=== PATIENT | female | born 1960 | race Caucasian/White ===

== ENCOUNTER 2022-03-31 13:23 | Inpatient (IN) ==
[2022-03-31] MEDS ORDERED: NITROGLYCERIN SL 0.4 MG/TAB TAB SL STA (13:32)
[2022-03-31] MEDS ORDERED: NITROGLYCERIN SL 0.4 MG/TAB TAB ONE (13:32)
[2022-03-31] MEDS ORDERED: HEPARIN SOD (PORCINE) 1000 UNIT/ML IV ONE (13:40)
[2022-03-31] MEDS ORDERED: niCARdipine HCL INJ 2.5 MG/ML 10 ML AMP ONE (13:40)
[2022-03-31] MEDS ORDERED: fentaNYL citrate 100 MCG/2 ML VIAL ONE (13:40)
[2022-03-31] MEDS ORDERED: MIDAZOLAM HCL 1 MG/ML 2ML VIAL ONE (13:40)
[2022-03-31] MEDS ORDERED: HEPARIN (PORCINE) 1000 UNIT/ML 10 ML (CATH LAB USE ONLY) ONE (13:40)
[2022-03-31] MEDS ORDERED: TICAGRELOR 90 MG TAB PO ONE (13:40)
[2022-03-31] MEDS ORDERED: NITROGLYCERIN/D5W 100MCG/ML 20ML SYR ONE (13:41)
[2022-03-31 13:53] LABS: Basophils # (auto) 0.07 K/uL (0-0.2); Basophils % (auto) 0.6 %; Eosinophils # (auto) 0.23 K/uL (0-0.50); Eosinophils % (auto) 2.1 %; Hemoglobin 15.4 g/dl (12.0-16.0); Immature Granulocytes # (auto) 0.05 K/uL (0.00-0.02); Immature Granulocytes % (auto) 0.5 %; Lymphocytes # (auto) 2.19 K/uL (1.2-3.4); Mean Corpuscular Hemoglobin 30.7 pg (25.0-34.0); Mean Corpuscular Hgb Conc 34.2 g/dL (32.0-36.0); Mean Corpuscular Volume 89.6 fL (80.0-100.0); Monocytes # (auto) 0.93 K/uL (0.24-0.82); Monocytes % (auto) 8.5 %; Neutrophils # (auto) 7.48 K/uL (1.4-6.5); Neutrophils % (auto) 68.3 %; Platelet Count 232 K/uL (130-400); RDW Coefficient of Variation 12.7 % (11.5-14.5); RDW Standard Deviation 41.3 fL (36.4-46.3); Red Blood Count 5.02 M/uL (3.93-5.22); White Blood Count 10.95 K/ul (4.8-10.8)
--- NOTE | 2022-03-31 13:56 | Emergency Department Note ---
Impression & Plan ST elevation (STEMI) myocardial infarction, Chest pain, Nausea ED Provider Note Provider: Kemal Harvey MD DATE OF SERVICE: 03/31/2022 CHIEF COMPLAINT: Chest jaw and arm pressure HISTORY OF PRESENT ILLNESS: Patient is a 62-year-old female history of hyperlipidemia presenting here today via ambulance from the [employer] [facility]. Patient was brought in by EMS here after she developed pressure in her left jaw and arm and into the chest. No history of cardiac disease and states she is had negative stress test in the past. Non-smoker and denies diabetes. Family history of heart disease reported. Some nausea earlier but Zofran helped with this. Was hypotensive for EMS and collins but, was improved after some fluid and she no longer feels really nauseous. REVIEW OF SYSTEMS: A total of 10 review of systems was obtained and negative except as stated above in the HPI. PAST MEDICAL HISTORY: As noted above MEDICATIONS: Statin SOCIAL HISTORY: from [place], non-smoker Family medical history: Cardiac disease PHYSICAL EXAM: GENERAL: alert and oriented appears uncomfortable Head: normocephalic and atraumatic EYES: No injection, discharge or icterus. NECK: Trachea midline. ENT: Mucous membranes pink and moist. LUNGS: Airway patent. No retractions. Breath sounds clear anteriorly HEART: Regular rate and rhythm. No chest wall tenderness ABDOMEN: Soft and non-tender, without guarding or rebound. SKIN: Acyanotic, warm, dry, without rashes EXTREMITIES: Without swelling, tenderness or deformity NEUROLOGICAL: No focal deficits. No aphasia. No facial droop or slurred speech. EK bpm normal sinus rhythm without PVC or PAC. Inferior lateral ST segment elevation with aVL and V2 depressions. CONTINUOUS CARDIAC MONITORING: was ordered and showed a heart rate of 70s-90s bpm in NSR Patient's laboratory studies and imaging reviewed. Differential includes Cardiac ischemia, aortic dissection, pulmonary embolism, pneumothorax, pneumonia, pericarditis, myocarditis, esophageal rupture, GERD, cholecystitis, pancreatitis, musculoskeletal, as well as other pathologies. IMPRESSION/MEDICAL DECISION MAKING: Patient with prehospital EKG and EKG here consistent with inferior lateral STEMI. Quotation Clerk activated. Received aspirin prior to arrival & given additi onal heparin and Brilinta in discussion with cardiology who evaluated at bedside. Will go to the Quotation Clerk for definite care. Labs and IV access given. Given some nitro she as she is hypertensive now to help with her pain complaints with some improvement of her chest and jaw pressure. updated at bedside. DIAGNOSIS: STEMI, chest pain, nausea DISPOSITION: To cardiac labor arbitrator hearing office Critical Care I have personally spent 32 minutes of critical care time in the direct management of this patient. This includes bedside care, interpretation of diagnostic studies, and testing, discussion with consultants, patient, and family members, and other required patient management activities. These 32 minutes is in excess of all separately billable procedures. Past Med/Surg History Social History Smoking Status: Never smoker Feels Safe at Home: Yes Results & Data (ED) Vital Signs Vital Signs - 24 hr 03/31/22 13:29 03/31/22 13:29 03/31/22 13:29 Temperature 36.8 C 36.7 C Temperature Source Oral Oral Pulse Rate 81 Pulse Rate [Apical] 86 Respiratory Rate 20 20 Respiratory Effort / Characteristics Non-Labored Spontaneous Non-Labored Spontaneous Respiratory Depth Normal Normal Respiratory Pattern Regular Regular Blood Pressure 184/104 H Blood Pressure [Right Arm] 184/104 H Blood Pressure Mean 130 Blood Pressure Mean [Right Arm] 130 Pulse Oximetry 93 91 93 Oxygen Delivery Method Room Air Room Air Room Air Sepsis Recent Fever Within 48 Hours No Sepsis New/Unexplained Change in Mental Status No Sepsis Action Taken by Nursing No Action Required 03/31/22 13:41 Temperature Temperature Source Pulse Rate 85 Pulse Rate [Apical] Respiratory Rate 20 Respiratory Effort / Characteristics Respiratory Depth Respiratory Pattern Blood Pressure Blood Pressure [Right Arm] Blood Pressure Mean Blood Pressure Mean [Right Arm] Pulse Oximetry 93 Oxygen Delivery Method Room Air Sepsis Recent Fever Within 48 Hours Sepsis New/Unexplained Change in Mental Status Sepsis Action Taken by Nursing Laboratory Data Result diagrams: 03/31/22 13:40 03/31/22 13:40 Discharge Plan Visit Data Chief Complaint: Heart Alert ED Provider: Kemal Harvey Discharge Problem: ST elevation (STEMI) myocardial infarction, Chest pain, Nausea Patient Disposition: Still a Patient Condition: Serious Forms Stand Alone Forms: My [facility] Referrals Referrals: PCP,NO [Primary Care Provider] -
[2022-03-31 13:58] LABS: iSTAT Creatinine 1.1 mg/dl (0.6-1.3); iSTAT Hemoglobin 15.6 g/dl (12.0-16.0); iSTAT Ionized Calcium 1.19 mmol/l (1.12-1.32); iSTAT Potassium 4.6 mmol/L (3.3-5.0)
[2022-03-31] MEDS ORDERED: ATROPINE SULFATE 0.1 MG/ML 10ML SYR IV ONE (14:01)
[2022-03-31 14:06] LABS: Partial Thromboplastin Ratio 0.9; Partial Thromboplastin Time 24.9 Seconds (21.0-31.0); Prothrombin Time 10.9 Seconds (9.0-12.0)
--- NOTE | 2022-03-31 14:06 | XRay Report ---
XR chest 1V portable HISTORY: 62 years-old Female Chest pain acute atypical chest pain COMPARISON: None TECHNIQUE: Supine AP view of the chest FINDINGS: Cardiac silhouette is enlarged. Indeterminate right hilar/suprahilar round opacity. No pneumothorax, pleural effusion or lobar airspace consolidation. There is mild nonspecific interstitial coarsening. Degenerative changes of the shoulders and spine. IMPRESSION: 1. No acute processes of the chest. 2. Indeterminate circumscribed right hilar/suprahilar opacity. Correlate with prior imaging. ACT 112: Negative or not required by law. The above report was generated using voice recognition software. It may contain grammatical, syntax o r spelling errors. Electronically signed by: Christiano Suero M.D. 03/31/2022 2:05 PM
[2022-03-31] MEDS ORDERED: LIDOCAINE 1% LOCAL 20 ML VIAL ONE (14:40)
[2022-03-31 14:41] LABS: Alanine Aminotransferase 14 U/L (7-52); Albumin Globulin Ratio 1.5 (0.9-2); Albumin Level 4.4 gm/dl (3.4-5.0); Alkaline Phosphatase 66 U/L (34-104); Anion Gap 9 (3-11); BUN Creatinine Ratio 24.3 (10-20); Bilirubin,Total 0.3 mg/dl (0.2-1.0); Blood Urea Nitrogen 26 mg/dl (6-23); Calcium 9.5 mg/dl (8.5-10.1); Carbon Dioxide 25 mmol/L (21-32); Chloride 103 mmol/L (98-107); Creatine Kinase 70 U/L (26-192); Creatinine Clr Calc Pharmacy 52.6 ml/min; Est GFR (Non-African American) 55.2 ml/min; Globulin 2.9 gm/dl (2.5-4.0); Glucose 123 mg/dl (70-99(Fasting)); Lipase 28 U/L (11-82); Magnesium 2.1 mg/dl (1.7-2.4); Sodium 137 mmol/L (136-145); Total Protein 7.3 gm/dl (6.0-8.3); Troponin I High Sensitivity 25.6 pg/ml (0-14)
[2022-03-31] MEDS ORDERED: ATROPINE SULFATE 0.1 MG/ML 10ML SYR IV PRN (14:41)
[2022-03-31] MEDS ORDERED: NITROGLYCERIN SL 0.4 MG/TAB TAB SL PRN (14:41)
[2022-03-31] MEDS ORDERED: MAGNESIUM HYDROXIDE SUSP 30 ML UDC PO PRN (14:41)
[2022-03-31] MEDS ORDERED: ONDANSETRON INJ 2 MG/ML 2 ML VIAL IV PRN (14:41)
[2022-03-31] MEDS ORDERED: SODIUM CHLORIDE 0.9% 1000ML 1,000 ML IV SCH (14:45)
--- NOTE | 2022-03-31 15:20 | Cardiac Catheterization ---
ACC Data: Electric Range Assembler Cardiac Status Clinical evaluation leading to the procedure CAD Presenation: STEMI (Inferior) Anginal Classification: CCS IV Heart Failure: No Cardiogenic Shock within 24 Hours: No Cardiac Arrest within 24 Hours: No STEMI OR Non-STEMI Symptom Onset Date: 03/31/22 Symptom Onset Time: 13:00 Thrombolytics: No Coronary Anatomy Left Main (% Stenosis): Normal LAD (% Stenosis): Normal (Diffuse mild) D1 (% Stenosis): Normal D2 (% Stenosis): Normal D3 (% Stenosis): Normal Circumflex (% Stenosis): Mid (70%) RCA (% Stenosis): Mid (100%. BERYL 0 flow.) and Distal (70%) R PDA (% Stenosis): Normal R PL1 (% Stenosis): Normal Diagnostic Physicians Name: Laureano Vallejo MD, PhD Closure Device Percutaneous Entry Location: Radial Recommendations: PCI without planned CABG PCI Indication: PCI for STEMI - Stable First Noted: First EKG Lesion Segment Name: Mid RCA Culprit Artery: Yes Stenosis Prior to Rx (%): 100% Chronic Total Occlusion: No Pre-Procedure BERYL Flow: 0 Previously Treated Lesion: No Lesion Complexity: Non-High/Non-C Lesion Length (mm): 15 mm Thrombus Present: Yes Bifurcation Lesion: No Guidewire Across Lesion: Yes Lesion #2 Segment Name: Distal RCA Culprit Artery: Yes Stenosis Prior to Rx (%): 70% Chronic Total Occlusion: No Pre-Procedure BERYL Flow: 0 Previously Treated Lesion: No Lesion Complexity: Non-High/Non-C Lesion Length (mm): 8 millimeters Thrombus Present: Yes Bifurcation Lesion: No Guidewire Across Lesion: Yes Cardiac Cath Procedure Full Procedure Date March 31, 2022 Pre-Procedure Diagnosis Pre-Procedure Diagnosis: STEMI (inferior) AUC Score AUC Score: 09 Post-Procedure Diagnosis Post-Procedure Diagnosis: Severe CAD Procedure(s) Performed Procedure(s) Performed: Coronary Angiography and Drug Eluting Stent Scissors Sharpener Laureano Vallejo MD, PhD Estimated Blood Loss Estimated Blood Loss: <10 ml Medication(s) Medication(s): Fentanyl, Heparin, Lidocaine 1%, Nicardipine, Nitroglycerin and Versed Summary of Findings Brief description: Patient was brought to the cardiac catheterization suite where she was shaved and prepped in a sterile fashion. Sedated using IV Versed and fentanyl. Soft tissues of the right wrist were anesthetized using 2 mL of 1% Xylocaine. The right radial artery was accessed using a modified Seldinger technique and a 6 Belgian radial artery glide sheath was placed. Patient was provided antispasmodics including nicardipine and nitroglycerin. She arrived after having received 5000 unit IV bolus of heparin. ACT was checked and additional heparin was provided as needed to maintain therapeutic ACT. All catheters were advanced and exchanged over a 0.35 J-tip wire. Left coronary angiography in orthogonal views with a 5 Belgian JL 3.5 diagnostic catheter. Right coronary angiography in orthogonal views with a 6 Belgian JR4 guide catheter. We proceeded with PCI using the 6 Belgian JR4 guide catheter. Through this, a Onovative guidewire was advanced and positioned distally into the PDA. Over the guidewire, a 2.0 x 12 mm compliant balloon was advanced and positioned across the lesion. Lesion was predilated multiple times up to 14 reinier. The balloon was then removed. A 2.25 x 18 [place] drug-eluting stent was then advanced and positi oned across the lesion in the RCA. This was deployed initially at 8 reinier. The stent balloon was removed and angiography was performed. Decision was made to post dilate the stent using a 2.25 x 8 noncompliant balloon up to 14 reinier. Final post dilatation diameter 2.3 mm. Angiography was performed. Patient continued to have chest discomfort and it was noted that the distal LAD just before the bifurcation had a residual 50 to 70% stenosis. Therefore, a 2.25 x 12 mm drug- eluting stent was advanced and deployed across the lesion at nominal deployment pressure. Stent balloon was removed and angiography was performed. Patient's chest discomfort resolved. Final angiographic evaluation was performed. The guide catheter that was then removed from the patient. Radial artery sheath was removed. Hemostasis was obtained using a TR band. She was then admitted to the inpatient telemetry unit for further work-up and management. This ended the case. Coronary angiography: Left main trunk: This is a large-caliber short vessel which bifurcates into the LAD and left circumflex. It has no angiographically evident disease. LAD: This is a large caliber vessel which reaches the apex. Provides several smaller diagonal branches and several larger septal branches. The third diagonal is a largest and branches almost immediately. The LAD and its branches have scattered mild plaques. LCx: Large caliber and nondominant. Proximal AV groove vessel is large with mild luminal irregularities. Provides a large caliber multi branching OM1. This has diffuse mild disease proximally and the mid segment becomes more tortuous and smaller in caliber. It then bifurcates distally into 2 branches which are small. The mid and distal branches have diffuse mild to moderate disease. The mid AV groove circumflex becomes relatively small in caliber. Probably around 2 mm in diameter. It is diffusely diseased with stenosis of up to 70%. It then provides a larger caliber posterolateral branch. The posterior lateral branch is tortuous with multiple branches. It has diffuse mild disease. The most distal AV groove circumflex becomes small traveling further in the AV groove where it bifurcates and terminates. RCA: Is a medium caliber and dominant vessel. Ostium is the same size as the 6 [place] guide catheter. There is diffuse mild disease proximally then the vessel is 100% occluded in the midsegment. There is BERYL 0 flow in this segment. PCI of RCA: 0% residual stenosis in the midsegment post PCI. Small stepup and stepdown with 0% residual stenosis in the distal RCA post PCI. BERYL-3 flow post PCI no evidence of dissection or perforation post PCI Complete anatomy is demonstrated post PCI. This includes mild diffuse disease between the mid and distal stents. The distal stent ends just before the bifurcation. Artery bifurcates into a large caliber and long branching PDA which has mild luminal irregularities and a medium to small caliber branching posterolateral. Hemodynamics Rest Ao:: 160/98 mmHg, mean 113 mmHg Final Ao: 165/92 mmHg, mean 97 mmHg LV: Not performed Recommendations Recommendations: PCI without planned CABG Radiation Exposure (mGy) 1069 mGy, fluoroscopy time 7.3 minutes Contrast (mls) 150 mL Anesthesia 1 mg IV Versed, 50 mcg IV fentanyl Procedural Complication(s) None Disposition Recovery Room\PACU I attest to the content of the Intraoperative Record and any orders documented therein. Any exceptions are noted below. [facility] Card Cath Procedure Codes Cardiac Catheterization Procedure 1: Cardiovascular Cath Procedures: 18717 Coronaries Stenting Procedure 1: Cardiovascular Stent Procedures: 84021 Perc transluminal revascularization of acute sub/total occl, aMI (RCA) PG Care Time/CCT Total # of Minutes Spent Total Time Spent with Patient: Total time spent is greater than 50% in coordination of care (as documented) at patient's floor/unit and/or counseling patient:
--- NOTE | 2022-03-31 15:38 | History & Physical Report ---
Date of Service March 31, 2022 Assessment & Plan (1) Atherogenic dyslipidemia: Plan: Patient is considered high risk (CAD). We will also look for other risk factors including occult diabetes. Current guidelines recommend high intensity statin therapy with aggressive LDL reduction. We are checking a fasting lipid panel with target LDL to be reduced by 50% from untreated baseline. Atorvastatin 40 mg p.o. daily is initiated. Present on Admission?: Yes (2) Benign essential hypertension: Plan: Blood pressure is elevated and she does not seem to take any medications for this. We will initiate appropriate guideline directed therapy as indicated by coronary disease. First agent will be a beta-krystal. Then, MESHA inhibitor/ARB if needed. Present on Admission?: Yes (3) Coronary artery disease: Plan: This is a new diagnosis. Underwent PCI for acute RCA occlusion. There is significant residual disease in the circumflex distribution and mild diffuse disease elsewhere. Guideline directed medical therapy is recommended. Low-dose aspirin, high intensity statin therapy, and beta-krystal plus or minus MESHA inhibitor as tolerated and determined by renal function. We will also obtain an echocardiogram to evaluate for abnormalities in structure or function. Further recommendations pending results. Present on Admission?: Yes (4) ST elevation (STEMI) myocardial infarction: Plan: Inferior STEMI status post PCI x2 drug-eluting stents to the RCA. Echocardiogram to evaluate EF. Dual antiplatelet therapy with aspirin (81 mg daily) and Brilinta (90 mg twice daily) to complete at least 1 year therapy. After that, 1 additional year of dual antiplatelet therapy with aspirin 81 mg and either Brilinta 60 mg twice daily or Plavix 75 mg daily. We have started metoprolol tartrate 25 mg p.o. twice daily. This will be titrated up to achieve target heart rate and blood pressure. MESHA inhibitor/ARB will also be started to achieve target blood pressure. Present on Admission?: Yes Plan Patient will be hospitalized for at least 48 hours. Stepdown as appropriate. Complete studies as above. Additional recommendations pending evolution of her clinical course. Admission and Anticipated Discharge Date Admission Date: 03/31/2022 admission Anticipated date of discharge: 04/02/22 History of Present Illness Chief Complaint: Chest pain Primary Care Provider: NO PCP 62-year-old female who denies prior cardiac history is visiting family from [place] and attending the [employer] football game. She had sudden onset chest pressure, shortness of breath, diaphoresis, nausea, and malaise. EMS evaluated in the stadium and preadmission EKG demonstrated significant inferior ST elevation with reciprocal ischemic changes elsewhere. A "heart alert" was called and on my arrival the patient was receiving initial triage care in the emergency department. She appeared acutely in distress and was uncomfortable. She had received aspirin. Her blood pressure was elevated. I reviewed her EKG and we briefly discussed need for emergent cardiac catheterization. Risk benefits and alternatives were discussed with the patient. She voiced understanding as her had just had a catheterization within the last month. She was to proceed emergently for catheterization and PCI as indicated. Patient was then provided IV heparin 5000 units, Brilinta 180 mg p.o., and aspirin by the emergency room staff. Patient then arrived in the cardiac catheterization suite where I proceeded with urgent catheterization. This revealed acutely occluded RCA. We stented the RCA in 2 places and she had resolution of her symptoms. She remained hemodynamically stable. She will now be admitted to the telemetry unit for further work-up and management. Patient denies preceding anginal symptoms. She has had no cardiac events or disease in the past per her recollection. Unfortunately, outpatient records are not available. Currently, denies any ongoing chest pain, shortness of breath, recent syncope, near syncope, orthopnea, PND, racing heartbeat, palpitations, or edema. No fevers or chills. No cough or sputum production. No hemoptysis, hematemesis. She has had no significant GI distress. No dysuria or hematuria. No melena or hematochezia. Past Med/Surg History Social History Smoking Status: Never smoker Feels Safe at Home: Yes Review of Systems Review of Systems: Negative x12 point review except as per HPI. Physical Exam Constitutional: WD/WN, vitals as above Eyes: PERRL, conjunctivae normal, anicteric sclerae ENMT: external ear and nose normal, oropharynx normal Neck: No JVD Respiratory: normal respiratory effort, lungs clear to auscultation Cardiovascular: RRR, no murmur, no edema Gastrointestinal (Abdomen): NABS. Neurologic: Cognition is intact. Speech is fluent. There is no focal deficits. Psychiatric: A+Ox3, euthymic affect Results & Data Results & Data ([facility]) Vital Signs (Past 12 Hours) Vital Signs Temp Pulse Pulse Resp BP BP Pulse Ox 03/31/22 13:41 85 20 93 03/31/22 13:29 36.7 C 86 20 184/104 H 93 03/31/22 13:29 91 03/31/22 13:29 36.8 C 81 20 184/104 H 93 O2 Del Method 03/31/22 13:41 Room Air 03/31/22 13:29 Room Air 03/31/22 13:29 Room Air 03/31/22 13:29 Room Air Code Status & VTE Plan VTE Prophylaxis Plan VTE Prophylaxis will be ordered: Yes Critical Care Time Critical Care Time: Yes PG Care Time/CCT Total # of Minutes Spent Total Time Spent with Patient: Total time spent is greater than 50% in coordination of care (as documented) at patient's floor/unit and/or counseling patient: Critical Care Time: Yes 45-minute was spent in the initial evaluation, examination, formulation of a plan of care, review of available records, implementation of that plan of care, discussion with family () and with the ER hospital team and [employer] team. This also includes discussion with the nursing staff on the floor. This time is exclusive of the time spent in the procedure. This time includes time spent in documentation of all of the above. [place] [address] Initial Inpt Care Lvl 3 Patient Type New History Comprehensive Exam Comprehensive Medical Decision Making High Complexity Diagnoses Atherogenic dyslipidemia E78.5 Benign essential hypertension I10 Coronary artery disease I25.10 ST elevation (STEMI) myocardial infarction I21.3 Involved coronary artery: unspecified coronary artery Additional Codes Critical Care Time - Critical Care Time: Yes ([id number]) (1) ST elevation (STEMI) myocardial infarction Involved coronary artery: unspecified coronary artery Qualified Code(s): I21.3 - ST elevation (STEMI) myocardial infarction of unspecified site
--- NOTE | 2022-03-31 15:41 | Pre Anesthesia Assessment ---
Date of Service March 31, 2022 Pre Sedation Assessment Vital Signs Temp Pulse Pulse Resp BP BP Pulse Ox 03/31/22 15:19 36.8 C 88 19 128/76 97 03/31/22 13:41 85 20 93 03/31/22 13:29 36.7 C 86 20 184/104 H 93 03/31/22 13:29 91 03/31/22 13:29 36.8 C 81 20 184/104 H 93 O2 Del Method 03/31/22 15:19 Room Air 03/31/22 13:41 Room Air 03/31/22 13:29 Room Air 03/31/22 13:29 Room Air 03/31/22 13:29 Room Air Cardiovascular RRR, no murmur, no edema Respiratory normal respiratory effort, lungs clear to auscultation Pre-Sedation Airway Assessment Smoking Status: Never smoker II IV Notes The planned sedation has been discussed with the patient. Informed Consent was obtained. I have identified the patient, determined the appropriateness of sedation and have assessed the patient immediately prior to the procedure. All medicine(s) and interventions are by my order.
--- NOTE | 2022-03-31 15:42 | Post Anesthesia Assessment ---
Date of Service March 31, 2022 Post Sedation Assessment Vital Signs Temp Pulse Pulse Resp BP BP Pulse Ox 03/31/22 15:19 36.8 C 88 19 128/76 97 03/31/22 13:41 85 20 93 03/31/22 13:29 36.7 C 86 20 184/104 H 93 03/31/22 13:29 91 03/31/22 13:29 36.8 C 81 20 184/104 H 93 O2 Del Method 03/31/22 15:19 Room Air 03/31/22 13:41 Room Air 03/31/22 13:29 Room Air 03/31/22 13:29 Room Air 03/31/22 13:29 Room Air Recovery Score Activity: Moves 4 extremities Respiration: Deep Breath/Cough Circulation: +/-20% PreAnes Value Consciousness: Fully Awake Oxygen Saturation: > 92% On Room Air Discharge Sedation Level of Care: Phase I Post Sedation Plan On clinical assessment, the patient appears to have tolerated the sedation without complications. Patient is recovering as anticipated. Patient will continue to be monitored by nursing and may be discharged when sedation discharge criteria are met per below protocol. Upon Completions of procedure up to 15 minutes continue every 5 minute vital signs and the P.A.R. score; then discharge to a Phase I or Fast Track to Phase II per the following guidelines: * Discharge Patient to appropriate Phase II area if PAR is 8 or greater or return to pre- procedure baseline. The post - procedure orders will be as directed. * If PAR score is less than 8 or not return to pre-procedure baseline then pat ient will follow Phase I monitoring till PAR is reached for Phase II. The Phase I may be done in procedure room or may call to secure a Phase I area. * If naloxone or flumazenil are used for reversal, hold in Phase I for continued monitoring from when last reversal dose was given for a minimum of 60 minutes or longer pending the nurse and/or physician discretion of patient condition before discharge to Phase II. Please call the Sedation Physician to re-evaluate and complete post-note for discharge to Phase II area. Do NOT discharge from procedure sedation or Phase 1 until post- sedation evaluation note is complete by procedure /sedation MD Sedation Discharge Instructions to be given to the patient at discharge to home. [facility] Procedure Codes (Charges) Indication for Procedure Indication for procedure: STEMI Sedation/Anesthesia Procedure 1: Sedation/Anesthesia: 82761 Mod Sedation by the same physician;Init15 Min Child Age 5 & Up Total Sedation Time (minutes): 31 Procedure 2: Sedation/Anesthesia: 25209 Mod Sedation by the same physician; Ea [id number] Minutes Total Sedation Time (minutes): 31
[2022-03-31] MEDS: Patient's ALLERGY Info needs ENTERED SCH ×2 (16:17→17:09)
[2022-03-31 16:42] LABS: Potassium 4.1 mmol/L (3.5-5.1)
[2022-03-31] MEDS: ATORVASTATIN 40 MG TAB PO SCH (17:51)
[2022-03-31] MEDS: ENOXAPARIN INJ 40 MG/0.4 ML SYR SQ SCH (20:35)
[2022-03-31] MEDS: TICAGRELOR 90 MG TAB PO SCH (20:42)
[2022-03-31] MEDS: METOPROLOL TARTRATE 25 MG TAB PO SCH (20:42)
--- NOTE | 2022-03-31 23:23 | Electrocardiogram Report ---
Test Reason : Blood Pressure : / mmHG Vent. Rate : 074 BPM Atrial Rate : 074 BPM P-R Int : 174 ms QRS Dur : 096 ms QT Int : 372 ms P-R-T Axes : 054 062 101 degrees QTc Int : 412 ms Normal sinus rhythm Inferior infarct , possibly acute Inferolateral injury pattern ACUTE MS / STEMI Consider right ventricular involvement in acute inferior infarct Abnormal ECG No previous ECGs available Confirmed by Wei Doshi ([id number]) on 03/31/2022 11:23:39 PM Referred By: Confirmed By:Wei Doshi
--- NOTE | 2022-04-01 06:50 | Hospitalist Consultation ---
Date of Consultation March 31, 2022 Assessment & Plan (1) Coronary artery disease: Per primary service (2) Benign essential hypertension: Started on beta krystal. will recommend acehibitor/arb as BP remainns elevated (3) ST elevation (STEMI) myocardial infarction: as per primary service (4) Hypothyroidism: patient is on synthroid forher hypothyroidism. will resume in AM 50 mcg daily. History of Present Illness Reason for Consultation: medical management for CAD Attending Physician: Laureano Vallejo MD, PhD History of Present Illness 62 yo female in town for the [employer] [facility] football game with PMH of dyslipidemia, hypertension, hypothyroidism. Patient presented to the ER with a STEMI and required 2 drug diluting stents to RCA. Patient tolerated procedure well. Patient now in room in PCU and consult for hospitalist service placed. Allergies Allergy/AdvReac Type Severity Reaction Status Date / Time Penicillins Allergy Mild Rash Verified 03/31/22 16:16 Patient History Social History Smoking Status: Never smoker Hx Alcohol Use: Yes Alcohol type: beer and wine Hx Substance Use: No Preferred Language: Albanian Cigarette Stamper Required: No Beliefs That Will Affect Care: None Current Living Situation: Spouse Feels Safe at Home: Yes Assistive Devices: Glasses Review of Systems Constitutional: no fever and no body aches Eyes: no blind spots Ear, Nose, Mouth, Throat: no ear pain and no tinnitus Respiratory: no cough Cardiovascular: + chest pain Gastrointestinal: no abdominal pain Genitourinary: no dysuria Musculoskeletal: no back pain Integumentary: no acne Neurologic: no gait abnormality Psychiatric: no behavioral changes Endocrine: no fatigue Hematologic / Lymphatic: no easy bleeding Allergy / Immunological: no GI upset with certain foods Physical Exam Constitutional: WD/WN, vitals as above Eyes: PERRL, conjunctivae normal, anicteric sclerae ENMT: external ear and nose normal, oropharynx normal Neck: trachea midline, no thyromegaly Respiratory: normal respiratory effort, lungs clear to auscultation Cardiovascular: RRR, no murmur, no edema Gastrointestinal (Abdomen): normal bowel sounds, soft, nontender, no hepatosplenomegaly Musculoskeletal: no cyanosis or clubbing, extremities motor strength 5/5 Skin: no rashes, warm and dry Neurologic: PERRL, EOMI, accommodation nl, no face palsy, no dysarthria Psychiatric: A+Ox3, euthymic affect Lymphatic: no cervical or axillary lymphadenopathy Results & Data Results & Data ([facility]) Vital Signs (Past 12 Hours) Vital Signs Temp Pulse Pulse Resp BP BP Pulse Ox 03/31/22 23:00 62 04/01/22 02:54 36.8 C 70 16 172/112 H 97 03/31/22 23:10 36.8 C 62 16 144/88 H 94 03/31/22 20:26 36.7 C 92 H 18 172/107 H 100 03/31/22 19:18 36.6 C 80 16 138/80 94 O2 Del Method 03/31/22 23:00 04/01/22 02:54 Room Air 03/31/22 23:10 Room Air 03/31/22 20:26 Room Air 03/31/22 19:18 Room Air PG Care Time/CCT Total # of Minutes Spent Total Time Spent with Patient: Total time spent is greater than 50% in coordination of care (as documented) at patient's floor/unit and/or counseling patient: Coding Level of Care Code 51976 Inpt Consult Level 3 Diagnoses Coronary artery disease I25.10 Benign essential hypertension I10 ST elevation (STEMI) myocardial infarction I21.3 Involved coronary artery: unspecified coronary artery Hypothyroidism E03.9 (1) ST elevation (STEMI) myocardial infarction Involved coronary artery: unspecified coronary artery Qualified Code(s): I21.3 - ST elevation (STEMI) myocardial infarction of unspecified site
[2022-04-01 07:15] LABS: Chol HDL Ratio 3.7 (0-5)
[2022-04-01] MEDS: ASPIRIN 81 MG ECTAB PO SCH (08:20)
[2022-04-01] MEDS: METOPROLOL TARTRATE 25 MG TAB PO SCH ×2 (08:20→20:33)
[2022-04-01] MEDS: ATORVASTATIN 40 MG TAB PO SCH (08:20)
[2022-04-01] MEDS: TICAGRELOR 90 MG TAB PO SCH ×2 (08:20→20:30)
[2022-04-01] MEDS: LEVOTHYROXINE SODIUM 50 MCG TABLET PO SCH (08:20)
[2022-04-01] MEDS ORDERED: TICAGRELOR 90 MG HOME PACK PO SCH (09:00)
--- NOTE | 2022-04-01 09:16 | Hospitalist Progress Note ---
Date of Service April 01, 2022 Assessment & Plan (1) ST elevation (STEMI) myocardial infarction: Plan: Patient presented with acute onset of chest pain, shortness of breath, diaphoresis, and nausea. Noted to have inferior STEMI on initial ECG and was taken urgently to the cardiac [facility] where she had 2 stents placed to the RCA Troponin has peaked at 4046. Echocardiogram normal with preserved EF She is chest pain-free. Has some left jaw pain that has been present off and on for months and may be related to grinding her teeth. No arrhythmias on telemetry post PA. Has been intolerant to atorvastatin in the past and only able to tolerate Crestor 5 Mg every 3 days, but is willing to try atorvastatin now that she has been taking co-Q10. Lipid panel here is good Hemoglobin A1c pending, no previous history of diabetes No previous history of hypertension No history of smoking Has a strong family history of CAD in both brothers, one in his early 50s, and also in her father. -Continued stay for telemetry monitoring for another 24 hours -Appreciate cardiology management -Continue DAPT with aspirin and Brilinta for at least 1 year and then either aspirin and Brilinta or aspirin and Plavix after that as per cardiology -Continue atorvastatin 40 mg daily, patient will have her bring her in co-Q10 to use along with it for statin induced myalgias -Started metoprolol 25 Mg p.o. twice daily-cannot tolerate increased dose due to bradycardia at times -will start lisinopril 5 mg daily as below for persistently elevated blood pressures -She will need to get established with cardiology after she returns to [place] and would benefit from cardiac rehab -Right radial cath wrist precautions (2) Coronary artery disease: Plan: As above (3) Benign essential hypertension: Plan: Was not previously on treatment for elevated blood pressures and reports they are typically within normal limits Blood pressures remain quite elevated despite starting metoprolol 25 Mg p.o. twice daily Start lisinopril 5 Mg p.o. once daily Monitor blood pressures (4) Hypothyroidism: Plan: TSH normal here at 0.857 continue home Synthroid 50 mcg daily (5) Abnormal chest xray: Plan: Noted to have a right hilar suprahilar mass on chest x-ray She has no pulmonary symptoms and has never been told this before. No history of sarcoidosis -She is agreeable to chest CT without contrast here for diagnostic purposes -will follow-up on results Plan DVT prophylaxis-Lovenox Disposition-continued stay on PCU, possible discharge home tomorrow if continues to do well Admission and Anticipated Discharge Date Admission Date: March 31, 2022 Subjective Patient reports some residual left jaw pain that comes and goes even at rest and she thinks she has had this for a while/months. Thinks it could be related to grinding her teeth. No chest pains or shortness of breath. She is feeling better than yesterday. She is eating and drinking. Reports joint pains all over and intolerance to statins in the past. She would prefer to try to stay on atorvastatin now that she has been taking co-Q10 whereas when she tried atorvastatin in the past she had significant myalgias. Discussed her abnormal chest x-ray and she has never been told this in the past. No history of sarcoidosis. Telemetry with normal sinus rhythm rates in the 60s to 80s Review of Systems Review of Systems: All systems reviewed & are unremarkable except as noted in HPI & below Physical Exam Constitutional: WD/WN, vitals as above Eyes: + anicteric sclerae ENMT: external ear and nose normal, oropharynx normal Neck: trachea midline, no thyromegaly Respiratory: normal respiratory effort, lungs clear to auscultation Cardiovascular: RRR, no murmur, no edema Chest (Breasts): Chest: normal inspection of chest Gastrointestinal (Abdomen): normal bowel sounds, soft, nontender, no hepatosplenomegaly Musculoskeletal: Extremities: extremities normal to inspection; no cyanosis and no clubbing Skin: no rashes, warm and dry Neurologic: moves all extremities and awake; no focal motor deficits Psychiatric: A+Ox3, euthymic affect Lymphatic: no lymphedema Results & Data Results & Data ([facility]) Vital Signs (Past 12 Hours) Vital Signs Temp Pulse Pulse Resp BP Pulse Ox O2 Del Method 04/01/22 08:49 58 L 04/01/22 07:05 36.6 C 70 16 173/109 H 96 Room Air 03/31/22 23:00 62 04/01/22 02:54 36.8 C 70 16 172/112 H 97 Room Air 03/31/22 23:10 36.8 C 62 16 144/88 H 94 Room Air Laboratory Results 09/25/22 09/25/22 09/25/22 Range/Units 16:20 15:44 09:52 Sodium (136-145) mmol/L Potassium (3.5-5.1) mmol/L Chloride (98-107) mmol/L Carbon Dioxide (21-32) mmol/L Anion Gap (3-11) BUN (6-23) mg/dl Creatinine (0.6-1.2) mg/dl Est Cr Clr Drug Dosing ml/min Est GFR ( Amer) ml/min Est GFR (Non-Af Amer) ml/min BUN/Creatinine Ratio (10-20) Glucose (70-99(Fasting)) mg/dl POC Glucose 110 H (70-99) mg/dl Estimat Average Glucose Pending Hemoglobin A1c Pending Calcium (8.5-10.1) mg/dl Magnesium (1.7-2.4) mg/dl Troponin I High Sens 3784.0 H* (0-14) pg/ml Triglycerides (0-150) mg/dl Cholesterol (0-200) mg/dl LDL Cholesterol, Calc mg/dl VLDL Cholesterol, Calc (0-30) mg/dl HDL Cholesterol mg/dl Cholesterol/HDL Ratio (0-5) 04/01/22 04/01/22 Range/Units 09:52 05:49 Sodium 139 (136-145) mmol/L Potassium 3.5 (3.5-5.1) mmol/L Chloride 105 (98-107) mmol/L Carbon Dioxide 27 (21-32) mmol/L Anion Gap 7 (3-11) BUN 18 (6-23) mg/dl Creatinine 0.74 D (0.6-1.2) mg/dl Est Cr Clr Drug Dosing 74.3 ml/min Est GFR ( Amer) 99.9 ml/min Est GFR (Non-Af Amer) 86.2 ml/min BUN/Creatinine Ratio 24.3 H (10-20) Glucose 135 H (70-99(Fasting)) mg/dl POC Glucose (70-99) mg/dl Estimat Average Glucose Hemoglobin A1c Calcium 9.1 (8.5-10.1) mg/dl Magnesium 1.9 (1.7-2.4) mg/dl Troponin I High Sens 4046.7 H* D (0-14) pg/ml Triglycerides 211 H (0-150) mg/dl Cholesterol 179 (0-200) mg/dl LDL Cholesterol, Calc 89 mg/dl VLDL Cholesterol, Calc 42 H (0-30) mg/dl HDL Cholesterol 48 mg/dl Cholesterol/HDL Ratio 3.7 (0-5) PG Care Time/CCT Total # of Minutes Spent Total Time Spent with Patient: Total time spent is greater than 50% in coordination of care (as documented) at patient's floor/unit and/or counseling patient: Coding Level of Care Code 23490 Subseq Hosp Care Lvl [address] elevation (STEMI) myocardial infarction I21.3 Involved coronary artery: unspecified coronary artery Coronary artery disease I25.10 Benign essential hypertension I10 Hypothyroidism E03.9 Abnormal chest xray R93.89 (1) ST elevation (STEMI) myocardial infarction Involved coronary artery: unspecified coronary artery Qualified Code(s): I21.3 - ST elevation (STEMI) myocardial infarction of unspecified site
[2022-04-01 11:11] LABS: BUN Creatinine Ratio 24.3 (10-20); Calcium 9.1 mg/dl (8.5-10.1); Creatinine Clr Calc Pharmacy 74.3 ml/min; Est GFR (African American) 99.9 ml/min; Est GFR (Non-African American) 86.2 ml/min; Magnesium 1.9 mg/dl (1.7-2.4); Potassium 3.5 mmol/L (3.5-5.1); Troponin I High Sensitivity 4046.7 pg/ml (0-14)
[2022-04-01] MEDS: lisinopril 5 MG TAB PO SCH (12:53)
--- NOTE | 2022-04-01 14:23 | Cardiology Progress Note ---
Date of Service April 01, 2022 Assessment & Plan (1) Benign essential hypertension: Plan: Blood pressure is predominantly above target. We will titrate up her medical regimen. This will be determined by results of echocardiogram which are pending. (2) Atherogenic dyslipidemia: Plan: High risk. High intensity statin therapy. She is intolerant to a atorvastatin. However, she was previously on Crestor 5 mg daily. At that time, her LDL was good and her primary care provider reduced her dosing to every third day. Now that she is known to be high risk I would recommend at least 5 mg daily. (3) Coronary artery disease: Plan: Status post PCI for acute inferior ST elevation NM. Her heart rate and blood pressure are not at target. We will adjust her guideline directed medical therapy to achieve these targets. She will remain on beta-krystal and statin. Dual antiplatelet therapy for at least 1 year. Admission and Anticipated Discharge Date Admission Date: March 31, 2022 Subjective Patient reports only intermittent jaw pain which she has had for many months. Denies any anginal chest pain or shortness of breath. No discomfort at the radial artery access site. No overnight events. Tolerating medications. Review of Systems Review of Systems: Negative x12 point review except as per HPI Physical Exam Constitutional: WD/WN, vitals as above Neck: No JVD Respiratory: Normal respirations. No distress. Cardiovascular: Regular rate and rhythm on the monitor. Neurologic: Cognition intact. Speech fluent. No tremor. Psychiatric: A+Ox3, euthymic affect Results & Data ([facility]) Vital Signs (Past 12 Hours) Vital Signs Temp Pulse Pulse Pulse Resp BP BP 04/01/22 12:20 36.9 C 73 16 161/97 H 04/01/22 08:49 58 L 04/01/22 07:05 36.6 C 70 16 173/109 H 04/01/22 02:54 36.8 C 70 16 172/112 H Pulse Ox O2 Del Method 04/01/22 12:20 93 Room Air 04/01/22 08:49 04/01/22 07:05 96 Room Air 04/01/22 02:54 97 Room Air PG Care Time/CCT Total # of Minutes Spent Total Time Spent with Patient: Total time spent is greater than 50% in coordination of care (as documented) at patient's floor/unit and/or counseling patient: Coding Level of Care Code 77650 Subseq Hosp Care Lvl 2 History Expanded Problem Focused Exam Expanded Problem Focused Medical Decision Making Moderate Complexity Diagnoses Benign essential hypertension I10 Atherogenic dyslipidemia E78.5 Coronary artery disease I25.10
--- NOTE | 2022-04-01 20:05 | CT Scan Report ---
CT SCAN OF THE CHEST WITHOUT IV CONTRAST CLINICAL HISTORY: Abnormal chest x-ray. Right mediastinal density. COMPARISON STUDY: Chest x-ray dated 03/31/2022. TECHNIQUE: CT scan of the thorax was performed from the thoracic inlet to the upper abdomen. Images are reviewed in the axial, sagittal, and coronal planes. IV contrast was not administered for this ex amination. Note that the examination is suboptimal without IV contrast. A dose lowering technique was utilized adhering to the principles of ALARA. CT DOSE: 370.86 mGycm FINDINGS: Thyroid: Imaged portions of the thyroid gland are normal in size and attenuation. Thoracic aorta: There is moderate atherosclerotic calcification of the thoracic aorta. There is ectas ia of the ascending thoracic aorta measures up to 3.9 cm in diameter. The remainder of the thoracic a vilma is normal in caliber comment the arch demonstrates standard 3-vessel anatomy. Heart: The heart is normal in size and without pericardial effusion. The coronary arteries are densel y calcified. Lungs and pleural spaces: There is no airspace consolidation or pleural effusion. Mild scarring/atele ctasis is seen at the lung bases. The trachea and central airways are clear. Mediastinum: There is no mediastinal lymphadenopathy. [place]: Not well assessed without IV contrast. Axillae: There is no axillary lymphadenopathy. Upper abdomen: There is a small hiatal hernia. Partially visualized upper abdominal viscera is within normal limits. Skeletal structures: The skeletal structures are osteopenic. No lytic or blastic bony lesions are see n. Degenerative change is noted in the shoulders and thoracic spine. IMPRESSION: 1. No mass lesion or lymphadenopathy is identified. 2. There is ectasia of the ascending thoracic aorta which measures up to 3.9 cm in diameter. Aortic e ctasia and patient rotation corresponds to the right mediastinal density seen by x-ray. 3. The lungs are clear. 4. Advanced coronary artery calcification. 5. Additional findings as above. ACT 112: Negative or not required by law. Electronically signed by: Kalen Mcghee M.D. 04/01/2022 8:04 PM
[2022-04-01] MEDS: ENOXAPARIN INJ 40 MG/0.4 ML SYR SQ SCH (20:31)
--- NOTE | 2022-04-01 21:17 | Electrocardiogram Report ---
Test Reason : Blood Pressure : / mmHG Vent. Rate : 063 BPM Atrial Rate : 063 BPM P-R Int : 148 ms QRS Dur : 096 ms QT Int : 432 ms P-R-T Axes : 035 035 -27 degrees QTc Int : 442 ms Normal sinus rhythm Septal infarct , age undetermined Inferior infarct (cited on or before 31-MAR-2022) Abnormal ECG When compared with ECG of 31-MAR-2022 13:32, Serial changes of evolving Inferior infarct Present Confirmed by Moe Welch ([id number]) on 04/01/2022 9:16:45 PM Referred By: Laureano Vallejo Confirmed By:Moe Welch
[2022-04-02] MEDS ORDERED: ICU PROTOCOL FOR HYPERGLYCEMIA PRN (02:46)
[2022-04-02] MEDS ORDERED: STAT IV Infusion **Titration per Protocol STA (02:46)
[2022-04-02] MEDS ORDERED: EPTIFIBATIDE BOLUS/DRIP IV STA (02:46)
--- NOTE | 2022-04-02 02:58 | Pre Anesthesia Assessment ---
Date of Service April 02, 2022 Pre Sedation Assessment Vital Signs Temp Pulse Pulse Pulse Resp BP BP 04/01/22 23:46 36.8 C 73 18 140/84 04/01/22 23:04 59 L 04/01/22 20:00 36.9 C 71 16 152/92 H 04/01/22 16:41 37.0 C 80 16 145/91 H 04/01/22 15:35 64 04/01/22 15:00 04/01/22 12:20 36.9 C 73 16 161/97 H 04/01/22 08:49 58 L 04/01/22 07:05 36.6 C 70 16 173/109 H Pulse Ox O2 Del Method O2 Del Method 04/01/22 23:46 96 Room Air 04/01/22 23:04 04/01/22 20:00 95 Room Air 04/01/22 16:41 96 Room Air 04/01/22 15:35 04/01/22 15:00 Room Air 04/01/22 12:20 93 Room Air 04/01/22 08:49 04/01/22 07:05 96 Room Air Cardiovascular Additional Comments: bradycardia Pre-Sedation Airway Assessment Smoking Status: Never smoker III IV Notes The planned sedation has been discussed with the patient. Informed Consent was obtained. I have identified the patient, determined the appropriateness of sedation and have assessed the patient immediately prior to the procedure. All medicine(s) and interventions are by my order.
[2022-04-02] MEDS ORDERED: EPTIFIBATIDE 75 MG/100 ML VIAL IV SCH (03:00)
--- NOTE | 2022-04-02 03:00 | Post Anesthesia Assessment ---
Date of Service April 02, 2022 Post Sedation Assessment Vital Signs Temp Pulse Pulse Pulse Resp BP BP 04/01/22 23:46 36.8 C 73 18 140/84 04/01/22 23:04 59 L 04/01/22 20:00 36.9 C 71 16 152/92 H 04/01/22 16:41 37.0 C 80 16 145/91 H 04/01/22 15:35 64 04/01/22 15:00 04/01/22 12:20 36.9 C 73 16 161/97 H 04/01/22 08:49 58 L 04/01/22 07:05 36.6 C 70 16 173/109 H Pulse Ox O2 Del Method O2 Del Method 04/01/22 23:46 96 Room Air 04/01/22 23:04 04/01/22 20:00 95 Room Air 04/01/22 16:41 96 Room Air 04/01/22 15:35 04/01/22 15:00 Room Air 04/01/22 12:20 93 Room Air 04/01/22 08:49 04/01/22 07:05 96 Room Air Recovery Score Activity: Moves 0 extremities Respiration: Dyspnea/Limited Breathing (intubated) Circulation: +/-20% PreAnes Value Consciousness: Nonresponsive Oxygen Saturation: <90% w/ supp O2 Discharge Sedation Level of Care: Higher Level of Care Post Sedation Plan On clinical assessment, the patient appears to have tolerated the sedation without complications. Patient is recovering as anticipated. Patient will continue to be monitored by nursing and may be discharged when sedation discharge criteria are met per below protocol. Upon Completions of procedure up to 15 minutes continue every 5 minute vital signs and the P.A.R. score; then discharge to a Phase I or Fast Track to Phase II per the following guidelines: * Discharge Patient to appropriate Phase II area if PAR is 8 or greater or return to pre- procedure baseline. The post - procedure orders will be as directed. * If PAR score is less than 8 or not return to pre-procedure baseline then patient will follow Phase I monitoring till PAR is reached for Phase II. The Phase I may be done in procedure room or may call to secure a Phase I area. * If naloxone or flumazenil are used for reversal, hold in Phase I for continued monitoring from when last reversal dose was given for a minimum of 60 minutes or longer pending the nurse and/or physician discretion of patient condition before discharge to Phase II. Please call the Sedation Physician to re-evaluate and complete post-note for discharge to Phase II area. Do NOT discharge from procedure sedation or Phase 1 until post- sedation evaluation note is complete by procedure /sedation MD Sedation Discharge Instructions to be given to the patient at discharge to home.
[2022-04-02] MEDS: LEVOTHYROXINE SODIUM 50 MCG TABLET PO SCH (06:10)
[2022-04-02] MEDS: lisinopril 5 MG TAB PO SCH (08:08)
[2022-04-02] MEDS: ASPIRIN 81 MG ECTAB PO SCH (08:08)
[2022-04-02] MEDS: ATORVASTATIN 40 MG TAB PO SCH (08:09)
[2022-04-02] MEDS: TICAGRELOR 90 MG TAB PO SCH (08:09)
[2022-04-02] MEDS: METOPROLOL TARTRATE 25 MG TAB PO SCH (08:09)
[2022-04-02 08:31] LABS: Estimated Average Glucose 108 mg/dl; Hemoglobin A1C 5.4 % (4.5-5.6)
[2022-04-02 08:32] LABS: Basophils # (auto) 0.06 K/uL (0-0.2); Basophils % (auto) 0.6 %; Eosinophils # (auto) 0.19 K/uL (0-0.50); Hematocrit (blood only) 43.4 % (34.1-44.9); Hemoglobin 14.7 g/dl (12.0-16.0); Immature Granulocytes # (auto) 0.04 K/uL (0.00-0.02); Immature Granulocytes % (auto) 0.4 %; Lymphocytes # (auto) 1.35 K/uL (1.2-3.4); Lymphocytes % (auto) 14.4 %; Mean Corpuscular Hemoglobin 30.6 pg (25.0-34.0); Mean Corpuscular Hgb Conc 33.9 g/dL (32.0-36.0); Mean Corpuscular Volume 90.2 fL (80.0-100.0); Mean Platelet Volume 9.8 fL (9.4-12.3); Monocytes # (auto) 0.79 K/uL (0.24-0.82); Monocytes % (auto) 8.4 %; Neutrophils # (auto) 6.93 K/uL (1.4-6.5); Neutrophils % (auto) 74.2 %; Platelet Count 207 K/uL (130-400); RDW Coefficient of Variation 12.6 % (11.5-14.5); RDW Standard Deviation 41.8 fL (36.4-46.3); Red Blood Count 4.81 M/uL (3.93-5.22); White Blood Count 9.36 K/ul (4.8-10.8)
[2022-04-02 08:53] LABS: BUN Creatinine Ratio 21.3 (10-20); Calcium 9.3 mg/dl (8.5-10.1); Creatinine Clr Calc Pharmacy 69.7 ml/min; Est GFR (African American) 90.9 ml/min; Est GFR (Non-African American) 78.5 ml/min; Magnesium 1.8 mg/dl (1.7-2.4); Potassium 3.6 mmol/L (3.5-5.1)
[2022-04-02] MEDS ORDERED: ASPIRIN 325 MG ECTAB PO SCH (09:00)
[2022-04-02] MEDS ORDERED: CLOPIDOGREL BISULFATE 75 MG TAB PO SCH (09:00)
--- NOTE | 2022-04-02 10:39 | Discharge Summary ---
Date of Service April 02, 2022 Admission HPI Per Admitting Provider 62-year-old female who denies prior cardiac history is visiting family from [place] and attending the [place] [employer] football game. She had sudden onset chest pressure, shortness of breath, diaphoresis, nausea, and malaise. EMS evaluated in the stadium and preadmission EKG demonstrated significant inferior ST elevation with reciprocal ischemic changes elsewhere. A "heart alert" was called and on my arrival the patient was receiving initial triage care in the emergency department. She appeared acutely in distress and was uncomfortable. She had received aspirin. Her blood pressure was elevated. I reviewed her EKG and we briefly discussed need for emergent cardiac catheterization. Risk benefits and alternatives were discussed with the patient. She voiced understanding as her had just had a catheterization within the last month. She was to proceed emergently for catheterization and PCI as indicated. Patient was then provided IV heparin 5000 units, Brilinta 180 mg p.o., and aspirin by the emergency room staff. Patient then arrived in the cardiac catheterization suite where I proceeded with urgent catheterization. This revealed acutely occluded RCA. We stented the RCA in 2 places and she had resolution of her symptoms. She remained hemodynamically stable. She will now be admitted to the telemetry unit for further work-up and management. Patient denies preceding anginal symptoms. She has had no cardiac events or disease in the past per her recollection. Unfortunately, outpatient records are not available. Currently, denies any ongoing chest pain, shortness of breath, recent syncope, near syncope, orthopnea, PND, racing heartbeat, palpitations, or edema. No fevers or chills. No cough or sputum production. No hemoptysis, hematemesis. She has had no significant GI distress. No dysuria or hematuria. No melena or hematochezia. Principal Diagnosis STEMI, HTN Discharge Exam Constitutional WD/WN, vitals as above Eyes + anicteric sclerae ENMT external ear and nose normal, oropharynx normal Neck trachea midline, no thyromegaly Respiratory normal respiratory effort, lungs clear to auscultation Cardiovascular RRR, no murmur, no edema Chest (Breasts) Chest: normal inspection of chest Gastrointestinal (Abdomen) normal bowel sounds, soft, nontender, no hepatosplenomegaly Musculoskeletal Extremities: extremities normal to inspection; no cyanosis and no clubbing Skin no rashes, warm and dry Neurologic moves all extremities and awake; no focal motor deficits Psychiatric A+Ox3, euthymic affect Lymphatic no lymphedema Discharge Data Allergies Allergy/AdvReac Type Severity Reaction Status Date / Time Penicillins Allergy Mild Rash Verified 03/31/22 16:16 Consultations 03/31/22 14:41 Consult Internal Medicine Routine 03/31/22 14:46 Consult Cardiac Rehabilitation Routine Procedures Performed Operation Date: 03/31/22 13:45 Actual Procedures s Cineradiography w/Routine Exam - Laureano Vallejo MD, PhD p Aspiration/PCI w/BERT for Stemi - Laureano Vallejo MD, PhD s Cath, Coronaries ONLY (no LV) - Laureano Vallejo MD, PhD p Drug Eluting Stent SGl Vessel - Laureano Vallejo MD, PhD Ordered Studies 03/31/22 13:42 CL Cath Imgs for PACS use only Stat 04/01/22 12:20 CT chest diagnostic wo con Routine ECHO Hospital Course (1) ST elevation (STEMI) myocardial infarction: Patient presented with acute onset of chest pain, shortness of breath, diaphoresis, and nausea. Noted to have inferior STEMI on initial ECG and was taken urgently to the cardiac [facility]ing [facility] where she had 2 stents placed to the RCA Troponin has peaked at 4046. Echocardiogram normal with preserved EF She is chest pain-free. Has some left jaw pain that has been present off and on for months and may be related to grinding her teeth. No arrhythmias on telemetry post RI x 48 hrs Has been intolerant to atorvastatin in the past and only able to tolerate Crestor 5 Mg every 3 days, but is willing to try atorvastatin now that she has been taking co-Q10. Lipid panel here is good Hemoglobin A1c normal No previous history of hypertension but remains hypertensive here-improved with starting metoprolol and lisinopril No history of smoking Has a strong family history of CAD in both brothers, one in his early 50s, and also in her father. -Appreciate cardiology management-s/p 2 stents to RCA, has LCx 70% stenosis without intervention -will need outpatient Cardiology follow up once she returns to [place] -Continue DAPT with aspirin and Brilinta for at least 1 year and then either aspirin and Brilinta or aspirin and Plavix after that as per cardiology -Continue atorvastatin 40 mg daily, continue co-Q10 to use along with it for h/o statin induced myalgias -Started metoprolol 25 Mg p.o. twice daily-cannot tolerate increased dose due to bradycardia at times -started lisinopril 5 mg daily for persistently elevated blood pressures -Right radial cath wrist precautions given, recommend light activity only until seen by Cardiology in [place]. may benefit from cardiac rehab (2) Coronary artery disease: As above (3) Benign essential hypertension: Was not previously on treatment for elevated blood pressures and reports they are typically within normal limits -started metoprolol 25 Mg p.o. twice daily and lisinopril 5 Mg p.o. once daily Monitor blood pressures as outpt (4) Hypothyroidism: TSH normal here at 0.857 continue home Synthroid 50 mcg daily (5) Abnormal chest xray: Noted to have a right hilar suprahilar mass on chest x-ray She has no pulmonary symptoms and has never been told this before. No history of sarcoidosis -She is agreeable to chest CT without contrast here for diagnostic purposes Chest CT shows thoracic ectasia up to 3.6cm as cause of CXR abnormality, no other masses BP control follow as outpt Plan DVT prophylaxis-Lovenox Disposition-dc to home Total Time Total Time Spent Total Time Spent (In Minutes): 35 min Discharge Plan Discharge Items Patient Disposition: Home - Self-Care Reason For Visit: HEART ALERT Discharge Diagnosis: STEMI, CAD, hypertension Condition on Discharge: Good Activity: As commented below Bathing: Keep incision dry Exercise/Sports: Wait until after follow-up appointment Exercise Comment: can do activities of daily living Driving/Machine Use: Resume 3 days after discharge Non-emergency contact: Primary Care Provider and Oral Surgery Physician Call non-emergency contact if: you have any medication questions, your symptoms worsen and your pain is not controlled Follow-up/Referrals: PCP,NO [Primary Care Provider] - Diet: Heart Healthy Addtl Attending Provider Instructions: You were admitted with a heart attack and had 2 stents placed in your hear to restore good blood flow. You were started on new medications to keep you from having a heart attack again in the future. It is very important you take all of these medications exactly as prescribed. You will need to get established with a Oral Surgery Physician once you return to [place]. Home Care: * Take your medications exactly as directed. Don't skip doses. * Remember that recovery after a heart attack takes time. Plan to rest for at lease 4-8 weeks while you recover. Then return to normal activity when your doctor says it's okay. * Ask your doctor about joining a heart rehabilitation program. * Tell your doctor if you are feeling depressed. Feelings of sadness are common after a heart attack, but it is important that you speak to someone if you are feeling overwhelmed by these feelings. * If you are having chest pain, call 911 for an ambulance. Do NOT drive yourself to the hospital. * Ask your family members to learn CPR. * Learn to take your own blood pressure and pulse. Keep a record of your results. Ask your doctor when you should seek emergency medical attention. He or she will tell you which blood pressure reading is dangerous. Lifestyle Changes: * Maintain a healthy weight. Get help to lose any extra pounds. * Cut back on salt. * Limit canned, dried, packaged, and fast foods. * Don't add salt to your food. * Season foods with herbs instead of salt when you cook. * Break the smoking habit. Enroll in a stop-smoking program to improve your chances of success. * Limit fatty foods. * Ask your doctor about having your lipid levels checked regularly. * Build up your activity according to your doctor's recommendation. * Ask your doctor when it's okay to resume sexual activity. * Tell your doctor about any erectile dysfunction (ED) medication you are taking. Some ED medications are not safe if you take certain heart medications. * Try to manage stress. Follow Up: It is important for you to keep your follow up appointments with your medical provider. ACTIVITY RECOMMENDATIONS: Excess manipulation of the wrist should be avoided for the next 24-48 hours. * No lifting over 2 pounds (approximately a 1/2 gallon of milk) with the utilized arm for 24 hours. * No strenuous activity such as bowling or tennis for 3 days. * Keep the site of the procedure covered with a bandage for 24 hours. *You may shower the day after the procedure. Do not take a tub bath or submerge the puncture site in water for the next 3 days. *Do not operate any motorized equipment for 3 days. SPECIAL CARE INSTRUCTIONS: The site may be slightly bruised and sore following your procedure. Should any of the following occur, contact the Dr. who performed your procedure. 1. Redness/inflammation, swelling, chills, or fever, or colored drainage at procedure site within 3-7 days after your procedure. 2. Coldness, discoloration, ongoing numbness, severe pain, or swelling. Expect mild tingling of hand and tenderness at the puncture site for up to three days. If this persists beyond three days, or other symptoms develop, notify the Dr. who performed your procedure. BLEEDING: If the procedure site on your wrist begins to bleed, do not panic 1. Place 1 or 2 fingers firmly just slightly above the insertion site to stop the bleeding. You may be able to feel your pulse as you hold pressure. 2. Lift your finger after 5 minutes to see if the bleeding has stopped. 3. Once the bleeding has stopped, gently wipe the wrist area clean with a bandage. * If the bleeding from your wrist does not stop after 10 minutes, or if there is a large amount of bleeding or spurting, call 911 (do not drive yourself to the hospit al). SKIN IRRITATION: * You may experience some redness and/or swelling in the area where radiation was administered. If any skin irritation occurs, please contact your family physician. FOLLOW UP VISIT: Keep any scheduled doctor appointments. Pending Studies at Discharge: No Stand-Alone Forms: My [facility] Medications and DC Order Prescriptions: New atorvastatin 40 mg Tablet 40 mg PO QAM Qty: 30 0RF nitroglycerin [Nitrostat] 0.4 mg Tablet, Sublingual 0.4 mg sublingual UD PRN (Reason: chest pain) Qty: 25 0RF Rx Instructions: take q5 min as needed for chest pain x 3 doses and call 911 lisinopril [Zestril] 5 mg Tablet 5 mg PO QAM Qty: 30 0RF metoprolol tartrate 25 mg Tablet 25 mg PO BID Qty: 60 0RF Brilinta 90 mg Tablet 90 mg PO BID Qty: 60 0RF aspirin 81 mg Tablet,Delayed Release (Dr/Ec) 81 mg PO QAM Qty: 30 0RF Rx Instructions: OTC Continued coenzyme Q10 [CoQ-10] 100 mg Capsule 100 mg PO DAILY levothyroxine 50 mcg Tablet 50 mcg PO DAILY Discontinued rosuvastatin [Crestor] 5 mg Tablet 5 mg PO DAILY Discharge Orders: Discharge Order (Routine); Ordered 09/26/22 Ordered By: Kami Vegabobo Admission Data Admit Date/Time: 03/31/22 14:45 Attending Provider: Laureano Vallejo Admit Provider: Laureano Vallejo Primary Care Provider: PCP,NO Other Providers: Hermes Domingo ; Wilma England ; Deonte Faulkner ; Gallo Perez ; Steve Reddy ; Sandip Fishman ; Kalen Joyce ; Kami Meadows ; Nery Guzamn ; Zaki Vasques ; Audra Duval ; Jean Mathur ; Michael Julien ; Ne Jensen ; Milla Parikh ; Lennie Tran ; Keny Oscar ; Néstor Duarte ; Wilma Whitney ; Louann Owusu ; Alvarez Paiz ; Deonte Gabriel ; Yamileth Peterson ; Jackie Ortega ; Rafy Vargas ; Maddison Ayala ; Bossman Salcido ; Vaishali Angela ; Tex Wheat ; Laureen Alberts ; Celio Guy ; Bijan Chavez Coding Level of Care Code D/C DAY MANAGEMENT >[address] elevation (STEMI) myocardial infarction I21.3 Involved coronary artery: unspecified coronary artery Coronary artery disease I25.10 Benign essential hypertension I10 Hypothyroidism E03.9 Abnormal chest xray R93.89
--- NOTE | 2022-04-02 11:51 | Cardiology Progress Note ---
Date of Service April 02, 2022 Assessment & Plan (1) ST elevation (STEMI) myocardial infarction: Plan: Resolved post PCI. Echocardiogram suggests good salvage of myocardium post [place]. She will remain on dual antiplatelet therapy with aspirin 81 mg daily and Brili nta 90 mg p.o. twice daily for 1 year. Then, recommend transition to aspirin 81 mg daily and Brilinta 60 mg p.o. twice daily or change Brilinta to 75 mg Plavix daily. Patient should participate in cardiac rehab once he returns home to [place]. We have recommended that she have her records released to her primary care physician as well as a take away worker of her choice. (2) Coronary artery disease: Plan: In addition to her acute RCA stenosis, patient has a chronic stenosis in the circumflex and mild disease elsewhere. The circumflex lesion is angiographically significant but the vessel is relatively small. We would recommend antianginal regimen for this residual disease. A long-acting nitrate can be considered as an outpatient. She will remain on guideline directed medical therapy for secondary prevention of coronary disease including a atorvastatin, lisinopril, and metoprolol tartrate at current doses. (3) Benign essential hypertension: Plan: Right arm pressures are higher than the left arm pressures. Outpatient evaluation for upper extremity stenosis can be considered by primary take away worker. I would treat her more elevated blood pressure. Therefore, continue lisinopril 5 mg p.o. daily, metoprolol tartrate 25 mg p.o. twice daily and can consider isosorbide mononitrate 30 mg daily for anginal relief as well as blood pressure control at discharge. (4) Atherogenic dyslipidemia: Plan: Patient is considered high risk. High intensity statin therapy is recommended. Aggressive LDL reduction is recommended. Previously tolerated rosuvastatin which should be restarted at 5 mg daily. Plan Patient should be discharged with post cath/radial access instructions. She should limit her lifting to less than 5 pounds for 1 week post catheterization. Patient may travel on the airlines. She should establish cardiology care upon return to [place]. Admission and Anticipated Discharge Date Admission Date: March 31, 2022 Subjective Patient reports no chest pain or shortness of breath at this time. No overnight events were noted. Review of her vital signs demonstrate there is a pressure differential between the right and left upper extremities. Troponin noted to be over 4000, however, her echocardiogram shows normal EF. Physical Exam Constitutional: WD/WN, vitals as above Neck: trachea midline, no thyromegaly Respiratory: normal respiratory effort, lungs clear to auscultation Cardiovascular: RRR, no murmur, no edema Neurologic: Cognition intact. Speech fluent. No focal deficits. Psychiatric: A+Ox3, euthymic affect Results & Data ([facility]) Vital Signs (Past 12 Hours) Vital Signs Temp Pulse Pulse Resp BP BP Pulse Ox 04/02/22 11:19 36.6 C 80 64 14 122/82 161/97 H 96 04/02/22 11:13 36.6 C 64 14 122/82 96 04/02/22 07:48 36.6 C 85 16 131/86 97 04/02/22 04:58 36.6 C 73 18 157/83 H 96 04/01/22 23:46 36.8 C 73 18 140/84 96 O2 Del Method 04/02/22 11:19 04/02/22 11:13 Room Air 04/02/22 07:48 Room Air 04/02/22 04:58 Room Air 04/01/22 23:46 Room Air PG Care Time/CCT Total # of Minutes Spent Total Time Spent with Patient: Total time spent is greater than 50% in coordination of care (as documented) at patient's floor/unit and/or counseling patient: Coding Level of Care Code 12552 Subseq Hosp Care Lvl [address] elevation (STEMI) myocardial infarction I21.3 Involved coronary artery: unspecified coronary artery Coronary artery disease I25.10 Benign essential hypertension I10 Atherogenic dyslipidemia E78.5 (1) ST elevation (STEMI) myocardial infarction Involved coronary artery: unspecified coronary artery Qualified Code(s): I21.3 - ST elevation (STEMI) myocardial infarction of unspecified site
== END 2022-04-02 13:00 | disposition home or self-care (01) | DRG 247 ==
LOC: ED 13:23 → CC 13:55 → 2S 14:45
PROC: CLB.CCO (2022-03-31 13:45)